=== PATIENT | female | born 1980 | race Hispanic/Latino ===

== ENCOUNTER 2022-02-22 09:26 | Emergency (ER) | payer OTHER ==
--- NOTE | 2022-02-22 13:08 | Emergency Department Report ---
ED Female HPI - General Chief complaint: Urogenital-Female Stated complaint: LEFT BREAST PAIN Time Seen by Provider: 02/22/22 12:54 Source: patient Mode of arrival: Ambulatory Limitations: No Limitations - History of Present Illness Initial comments: 41-year-old female with a past medical history of migraines and a hysterectomy presents to the emergency department for evaluation of 1 week history of left breast pain. She states that pain came out of nowhere, is warm to touch and is worse with movement she denies injury, trauma, fever, any drainage from area. MD Complaint: other -: Gradual (Left breast pain), week(s) Location: other (Left breast) Radiation: non-radiating Severity: moderate Severity scale (0 -10): 6 Quality: aching Consistency: constant Worsens with: movement Are you Now?: No Associated Symptoms: denies: vaginal discharge, vaginal bleeding, abdominal pain, nausea/vomiting, fever/chills, headaches, loss of appetite, dysuria, hematuria, rash, seizure, shortness of breath, syncope, weakness - Related Data Previous Rx's Medication Instructions Recorded Last Taken Type Naproxen [Naprosyn] 500 mg PO BID #14 tab 02/22/22 Unknown Rx Sulfamethoxazole/Trimethoprim 1 each PO BID #14 tab 02/22/22 Unknown Rx [Bactrim DS TAB] Allergies Allergy/AdvReac Type Severity Reaction Status Date / Time azithromycin [From Zithromax] AdvReac Anaphylaxis Verified 02/22/22 09:45 Penicillins AdvReac Anaphylaxis Verified 02/22/22 09:45 ED Review of Systems ROS: Stated complaint: LEFT BREAST PAIN Other details as noted in HPI Comment: All other systems reviewed and negative Constitutional: denies: chills, fever Respiratory: denies: cough, shortness of breath Cardiovascular: denies: chest pain, palpitations, dyspnea on exertion, orthopnea, edema, syncope, paroxysmal nocturnal dyspnea Gastrointestinal: denies: abdominal pain, nausea, vomiting, diarrhea, hematemesis, melena, hematochezia Genitourinary: denies: urgency, dysuria Musculoskeletal: denies: back pain Skin: denies: rash, lesions Neurological: denies: headache, weakness, numbness, paresthesias ED Past Medical Hx - Past Medical History Previous Medical History?: Yes - Surgical History Past Surgical History?: Yes Additional Surgical History: hysterectomy 2017, x 3 - Social History Smoking Status: Never Smoker Substance Use Type: Alcohol - Medications Home Medications: Home Medications Medication Instructions Recorded Confirmed Last Taken Type Naproxen [Naprosyn] 500 mg PO BID #14 tab 02/22/22 Unknown Rx Sulfamethoxazole/Trimethoprim 1 each PO BID #14 tab 02/22/22 Unknown Rx [Bactrim DS TAB] ED Physical Exam - General Limitations: No Limitations General appearance: alert, in no apparent distress - Head Head exam: Present: atraumatic, normocephalic - Eye Eye exam: Present: normal appearance. Absent: conjunctival injection - Neck Neck exam: Present: normal inspection - Respiratory Respiratory exam: Present: normal lung sounds bilaterally. Absent: respiratory distress, wheezes, rales, rhonchi, stridor, chest wall tenderness, accessory muscle use - Cardiovascular Cardiovascular Exam: Present: regular rate, normal heart sounds - Expanded Cardiovascular Exam Expanded 1 - Area noted to be erythematous and warm and tender to touch. No drainage noted. Noted to area that is firm but movable - GI/Abdominal GI/Abdominal exam: Present: soft, normal bowel sounds. Absent: distended, tenderness, guarding, rebound, rigid - Extremities Exam Extremities exam: Present: normal inspection, normal capillary refill - Back Exam Back exam: Present: normal inspection. Absent: CVA tenderness (R), CVA tend erness (L) - Neurological Exam Neurological exam: Present: alert, oriented X3, normal gait - Psychiatric Psychiatric exam: Present: normal affect, normal mood - Skin Skin exam: Present: warm, dry, intact, normal color, erythema (Left breast area) ED Course Vital Signs 02/22/22 09:40 Temperature 97.6 F Pulse Rate 75 Respiratory 16 Rate Blood Pressure 133/84 O2 Sat by Pulse 100 Oximetry ED Medical Decision Making - Medical Decision Making 41-year-old female with a past medical history of migraines and a hysterectomy presents to the emergency department for evaluation of 1 week history of left breast pain. She states that pain came out of nowhere, is warm to touch and is worse with movement she denies injury, trauma, fever, any drainage from area. Assessment consistent with left breast abscess without drainage. Patient will be treated with 7-day course of Bactrim along with naproxen. She is advised to take medication as prescribed prescribed and follow-up with [facility] for further management and evaluation. She is encouraged to schedule with [facility] whether improvement or not to have mammogram. Patient verbalized understanding of and agreement with plan of care Critical care attestation.: If time is entered above; I have spent that time in minutes in the direct care of this critically ill patient, excluding procedure time. ED Disposition Clinical Impression: Left breast abscess Disposition: HOME / SELF CARE / HOMELESS Is pt being admited?: No Does the pt Need Aspirin: No Condition: Stable Instructions: Skin Abscess, [id number] Additional Instructions: Take medications as prescribed. Follow-up with [facility] for further evaluation and management. Return to the emergency department as needed. Prescriptions: Sulfamethoxazole/Trimethoprim [Bactrim DS TAB] 1 each PO BID #14 tab Naproxen [Naprosyn] 500 mg PO BID #14 tab Referrals: NADIA TRAN MD [Staff Physician] - 3-5 Days RAGHAVENDRA HASSAN MD [Referring] - 3-5 Days Time of Disposition: 13:10
[2022-02-22 14:27] VITALS: BP 82/46
== END 2022-02-22 13:50 | disposition home or self-care (01) ==
LOC: ED 09:26
DX: N61.1 Abscess of the breast and nipple (principal); Z98.890 Other specified postprocedural states; Z88.0 Allergy status to penicillin; Z91.09 Other allergy status, other than to drugs and biological substances
CPT/HCPCS: 99282